=== PATIENT | male | born 1985 | race Caucasian/White ===

== ENCOUNTER 2018-09-02 11:00 | Emergency (ER) | payer OTHER ==
[~2018-09-02] VITALS: Ht 167.6 cm; Wt 100.0 kg
[~2018-09-02 11:00] MED LIST: NO; ULTRAM50 MG OR
[2018-09-02 11:44] VITALS: BP 135/83
== END 2018-09-02 11:44 | disposition home or self-care (01) | DRG 125 ==
LOC: ED 11:00
PROC: 08QQXZZ Repair Right Lower Eyelid, External Approach (ICD-10-PCS; principal; 2018-09-02)
DX: S01.111A Laceration without foreign body of right eyelid and periocular area, initial encounter (principal); W51.XXXA Accidental striking against or bumped into by another person, initial encounter; Y93.18 Activity, surfing, windsurfing and boogie boarding; Y92.016 Swimming-pool in single-family (private) house or garden as the place of occurrence of the external cause

== ENCOUNTER 2020-02-10 09:25 | Emergency (ER) | payer OTHER ==
[~2020-02-10] VITALS: Ht 167.6 cm; Wt 100.0 kg
[2020-02-10 11:20] VITALS: BP 144/79
== END 2020-02-10 11:20 | disposition home or self-care (01) | DRG 556 ==
LOC: ED 09:25
DX: M25.561 Pain in right knee (principal); M25.571 Pain in right ankle and joints of right foot; W19.XXXA Unspecified fall, initial encounter; Z20.828 Contact with and (suspected) exposure to other viral communicable diseases